=== PATIENT | female | born 1955 | race Native Hawaiian/Other Pacific Islander ===

== ENCOUNTER 2017-01-19 19:11 | Emergency (ER) | payer BC ==
[~2017-01-19] VITALS: Ht 170.2 cm; Wt 90.3 kg
== END 2017-01-19 20:34 | disposition home or self-care (01) ==
LOC: ED 19:11
DX: T26.92XA Corrosion of left eye and adnexa, part unspecified, initial encounter (principal); T26.91XA Corrosion of right eye and adnexa, part unspecified, initial encounter; H57.13 Ocular pain, bilateral; I10 Essential (primary) hypertension; T59.91XA Toxic effect of unspecified gases, fumes and vapors, accidental (unintentional), initial encounter; Y92.524 Gas station as the place of occurrence of the external cause
CPT/HCPCS: 99283